=== PATIENT | female | born 1980 | race Caucasian/White ===

== ENCOUNTER 2017-04-24 21:37 | Emergency (ER) | payer MEDICAID ==
[~2017-04-24] VITALS: Ht 160 cm; Wt 104.3 kg
[2017-04-24] MEDS ORDERED: ZOLOFT100 MG PO (22:01)
[2017-04-24] MEDS ORDERED: LISINOPRIL2.5 MG PO (22:01)
[2017-04-24] MEDS ORDERED: ASPIR 8181 MG PO (22:02)
[2017-04-24] MEDS ORDERED: EPZICOM1 TAB PO (22:02)
[2017-04-24] MEDS ORDERED: LANTI SQ (22:03)
[2017-04-24] MEDS ORDERED: METFORMIN HCL1000 MG PO (22:04)
[2017-04-24] MEDS ORDERED: LEVOTHYROXIN0.175 MG PO (22:04)
[2017-04-25 00:14] VITALS: BP 109/74
== END 2017-04-25 00:15 | disposition home or self-care (01) ==
LOC: ED 21:37
DX: K21.9 Gastro-esophageal reflux disease without esophagitis (principal); T39.395A Adverse effect of other nonsteroidal anti-inflammatory drugs [NSAID], initial encounter; Y92.89 Other specified places as the place of occurrence of the external cause
CPT/HCPCS: Q0162